=== PATIENT | male | born 2005 ===

== ENCOUNTER 2025-02-23 04:15 | Emergency (ER) | payer SELFPAY ==
[2025-02-23] MEDS ORDERED: Boostrix 0.5 ML (Tdap) VIAL (>/=7 yrs of age) ONE (04:54)
== END 2025-02-23 05:33 ==
LOC: ERS 04:15
DX: S80.812A Abrasion, left lower leg, initial encounter (principal); S50.811A Abrasion of right forearm, initial encounter; Z55.6 Problems related to health literacy; V89.2XXA Person injured in unspecified motor-vehicle accident, traffic, initial encounter
CPT/HCPCS: 90471; 90715